=== PATIENT | male | born 1990 | race Caucasian/White ===

== ENCOUNTER 2019-10-01 16:22 | Emergency (ER) | payer SELFPAY ==
[2019-10-01] MEDS ORDERED: ONDANSETRON HCL INJ/PF 4 MG/2 ML SDV IV ONE (16:35)
[2019-10-01] MEDS ORDERED: NORMAL SALINE 1000 ML 1,000 ML IV ONE ×2 (16:35→19:15)
--- NOTE | 2019-10-01 16:36 | ER Document Report ---
ED Medical Screen (RME) - General Chief Complaint: Vomiting Stated Complaint: VOMITING Notes: Patient is a 28-year-old white male with a past medical history of reported diverticulitis who presents to the emergency department with chief complaint of suspected diverticulitis flare. Patient reports over the past 24 hours he has had several episodes of vomiting. States he is unable to quantify the number of times but states he is vomited "gallons". Denies any association with diarrhea. States he is got some generalized abdominal discomfort but no localization. Admits to general weakness, numbness and tingling in the fingers and around the mouth and nose. Cannot tolerate any oral intake. Denies any urinary complaints. He traveled here recently from [facility]. No known sick contacts. No known fevers. I have treated and performed a rapid initial assessment of this patient. A comprehensive ED assessment and evaluation of the patient, analysis of test results and completion of medical decision making process will be conducted by additional ED providers. PHYSICAL EXAMINATION: GENERAL: Well-appearing, well-nourished and in no acute distress. A&Ox4. Answers questions appropriately. Physical Exam - Vital signs Vitals: Temp Pulse Resp BP Pulse Ox 98.7 F 94 16 136/90 H 100 10/01/19 16:28 10/01/19 16:28 10/01/19 16:28 10/01/19 16:28 10/01/19 16:28 Course - Vital Signs Vital signs: Temp Pulse Resp BP Pulse Ox 98.7 F 94 16 136/90 H 100 10/01/19 16:28 10/01/19 16:28 10/01/19 16:28 10/01/19 16:28 10/01/19 16:28
[2019-10-01 18:49] LABS: ABSOLUTE LYMPHOCYTES (AUTO) 0.9 10^3/uL (0.5-4.7); ABSOLUTE MONOCYTES (AUTO) 1.3 10^3/uL (0.1-1.4); ABSOLUTE NEUT (AUTO) 13.4 10^3/uL (1.7-8.2); BASOPHILS % (AUTO) 0.1 % (0-2); HEMATOCRIT 48.4 % (37.9-51.0); HEMOGLOBIN 17.3 g/dL (13.5-17.0); LYMPHOCYTES % (AUTO) 5.5 % (13-45); MEAN CORPUSCULAR HGB CONC 35.8 g/dL (32.0-36.0); MEAN CORPUSCULAR VOLUME 84 fl (80-97); MONOCYTES % (AUTO) 8.3 % (3-13); PLATELET COUNT 249 10^3/uL (150-450); RED BLOOD COUNT 5.78 10^6/uL (4.35-5.55); RED CELL DISTRIBUTION WIDTH 13.1 % (11.5-14.0); SEGMENTED NEUTROPHILS % (AUTO) 86.1 % (42-78); TOTAL CELLS COUNTED % (AUTO) 100 %; WHITE BLOOD COUNT 15.6 10^3/uL (4.0-10.5)
[2019-10-01 18:50] LABS: ALBUMIN 5.8 g/dL (3.5-5.0); ALKALINE PHOSPHATASE 79 U/L (38-126); ANION GAP 16 (5-19); ASPARTATE AMINO TRANSFERASE 94 U/L (17-59); BILIRUBIN,TOTAL 1.4 mg/dL (0.2-1.3); BLOOD UREA NITROGEN 22 mg/dL (7-20); CALCIUM 10.6 mg/dL (8.4-10.2); CARBON DIOXIDE 30 mmol/L (22-30); CHLORIDE 89 mmol/L (98-107); GLUCOSE 124 mg/dL (75-110); POTASSIUM 3.4 mmol/L (3.6-5.0); TOTAL PROTEIN 9.4 g/dL (6.3-8.2)
[2019-10-01] MEDS ORDERED: METOCLOPRAMIDE HCL INJ/PF 10 MG/2 ML SDV IV ONE (19:15)
--- NOTE | 2019-10-01 19:16 | ER Document Report ---
ED GI/ - General Chief Complaint: Vomiting Stated Complaint: VOMITING Time Seen by Provider: 10/01/19 18:38 Mode of Arrival: Ambulatory Information source: Patient Notes: 28-year-old male here visiting from [place] with a history of diverticulitis presents to the emergency room complaining of a sudden onset of nausea and vomiting that started around 11 AM today. Patient complains of abdominal cramping which she states is secondary to the vomiting. States he has been and able to tolerate anything p.o. today. Also complains of a sore throat which she is not sure if it is related to the vomiting or not. States he does not normally drink any alcohol however he is on vacation and did have several alcoholic beverages yesterday also ate some kiwi not sure if that may have anibal ered his diverticulitis. He denies any fever, no other recent travel. Denies any COVID-19 exposure. No ill contacts. No bad food he can think of. No recent antibiotics. No diarrhea. TRAVEL OUTSIDE OF THE [place] IN LAST 30 DAYS: No - Related Data Allergies/Adverse Reactions: No Known Allergies Allergy (Unverified 10/01/19 18:12) Past Medical History - General Information source: Patient - Social History Smoking Status: Current Every Day Smoker - Vapes Chew tobacco use (# tins/day): No Frequency of alcohol use: Occasional Drug Abuse: Marijuana Family History: Reviewed & Not Pertinent GI Medical History: Reports: Hx Diverticulitis Review of Systems - Review of Systems Constitutional: No symptoms reported EENT: No symptoms reported Cardiovascular: No symptoms reported Gastrointestinal: Abdominal pain, Nausea, Vomiting. denies: Diarrhea, Constip ation, Blood in vomit Musculoskeletal: No symptoms reported Skin: No symptoms reported Hematologic/Lymphatic: No symptoms reported Neurological/Psychological: No symptoms reported -: Yes All other systems reviewed and negative Physical Exam - Vital signs Vitals: Temp Pulse Resp BP Pulse Ox 98.7 F 94 16 136/90 H 100 10/01/19 16:28 10/01/19 16:28 10/01/19 16:28 10/01/19 16:28 10/01/19 16:28 - General General appearance: Alert, Other - Ill-appearing but nontoxic appearing. In distress: Moderate - HEENT Head: Normocephalic, Atraumatic Eyes: Normal Pupils: PERRL External canal: Normal Tympanic membrane: Normal Sinus: Normal Nasal: Normal Mucous membranes: Normal Pharynx: Erythema Neck: Normal. No: Brudzinski, Kernig's, Lymphadenopathy, Meningismus, Shotty nodes - Respiratory Respiratory status: No respiratory distress Chest status: Nontender Breath sounds: Normal Chest palpation: Normal - Cardiovascular Rhythm: Regular Heart sounds: Normal auscultation Murmur: No - Abdominal Inspection: Normal Distension: No distension Bowel sounds: Normal Tenderness: Nontender Organomegaly: No organomegaly - Back Back: Normal, Nontender. No: CVA tenderness - Neurological Neuro grossly intact: Yes Cognition: Normal Orientation: AAOx4 [place] Coma Scale Eye Opening: Spontaneous [place] Coma Scale Verbal: Oriented Guzman Coma Scale Motor: Obeys Commands Guzman Coma Scale Total: 15 Speech: Normal Motor strength normal: LUE, RUE, LLE, RLE Sensory: Normal - Skin Skin Temperature: Warm Skin Moisture: Dry Skin Color: Normal Course - Re-evaluation Re-evalutation: 10/01/19 19:[address] at this time. Patient states he is more concerned about his throat and the vomiting. Denies any abdominal pain, denies any diarrhea. States he had one episode of diverticulitis 3 years ago has watched his diet since. States he did have a few alcoholic beverages and kiwi yesterday which he thinks may have triggered his some symptoms. States he does not routinely drink but he is on medication and had a little more alcohol than he normally does yesterday. Discussed with patient that we will check his labs throat culture and reevaluate. 10/01/19 20:35 Patient is currently resting comfortably he is pain-free on exam. He is afebrile he is nontoxic-appearing he is not ill-appearing. He is able to tolerate p.o. fluids. Patient was again offered a CT which he refused. Had long discussion with patient concerning his elevated white count which could be secondary to the vomiting, viral illness. Also discussed his elevated liver enzymes which can be related to his most recent alcohol use. Since he is currently pain-free on exam less likely to be a flareup of his diverticulitis. Patient states he is going back to [place] tomorrow he would prefer to be seen by his primary care physician back at his home tomorrow. He will be discharged home with R[facility] Cintron. Patient was given strict return to the emergency room guidelines. Return for any new or worsening symptoms. All questions were answered. Patient verbalized understanding and agrees with plan of care. 10/01/19 20:47 - Vital Signs Vital signs: Temp Pulse Resp BP Pulse Ox 98.8 F 69 16 126/67 H 96 10/01/19 19:51 10/01/19 19:51 10/01/19 19:51 10/01/19 19:51 10/01/19 19:51 - Laboratory Result Diagrams: 10/01/19 18:03 10/01/19 18:03 Laboratory results interpreted by me: 10/01/19 10/01/19 18:03 18:03 WBC 15.6 H RBC 5.78 H Hgb 17.3 H Lymph % (Auto) 5.5 L Absolute Neuts (auto) 13.4 H Seg Neutrophils % 86.1 H Sodium 134.8 L Potassium 3.4 L Chloride 89 L BUN 22 H Glucose 124 H Calcium 10.6 H Total Bilirubin 1.4 H AST 94 H ALT 70 H Total Protein 9.4 H Albumin 5.8 H Discharge - Discharge Clinical Impression: Nausea & vomiting Qualifiers: Vomiting type: unspecified Vomiting Intractability: non-intractable Qualified C ode(s): R11.2 - Nausea with vomiting, unspecified Acute pharyngitis Qualifiers: Pharyngitis/tonsillitis etiology: unspecified etiology Qualified Code(s): J02.9 - Acute pharyngitis, unspecified Disposition: HOME, SELF-CARE Instructions: Antinausea Medication ([facility]), Vomiting ([facility]) Additional Instructions: Clear liquid diet for the next 48 hours. Medications as prescribed. Follow-up with your primary care physician tomorrow. Return to the emergency room for any new or worsening symptoms.
[2019-10-01 20:10] VITALS: BP 126/67
[2019-10-01] MEDS ORDERED: ONDANSETRON ODT 4 MG TAB (6 TAB/ER DISP) PO PRN (20:37)
== END 2019-10-01 21:05 | disposition home or self-care (01) ==
LOC: ER 16:22
DX: J02.9 Acute pharyngitis, unspecified (principal); R11.2 Nausea with vomiting, unspecified; R10.9 Unspecified abdominal pain; F17.290 Nicotine dependence, other tobacco product, uncomplicated
CPT/HCPCS: 99284; 96361; 96374; 96375; 36415; 87070; 87880; 83690; 85025; 80053; J2765; J2405; J7030